=== PATIENT | female | born 1930 | race Caucasian/White ===

== ENCOUNTER → 2016-12-15 | Outpatient (CLI) | payer OTHER | LOC: CIMAGING 11:17 | PROVIDERS: ATTEND Internal Medicine Pulmonary Disease | DX: R93.8 Abnormal findings on diagnostic imaging of other specified body structures (principal); J84.9 Interstitial pulmonary disease, unspecified; I25.10 Atherosclerotic heart disease of native coronary artery without angina pectoris | CPT/HCPCS: 71250-PO ==